=== PATIENT | female | born 1990 | race Caucasian/White ===

== ENCOUNTER → 2024-07-14 06:32 | Day surgery (SDC) | payer OTHER, SELFPAY | LOC: GI 06:32 | PROVIDERS: ATTENDING PHYSICIAN Internal Medicine Gastroenterology | DX: D12.3 Benign neoplasm of transverse colon (principal); K63.89 Other specified diseases of intestine; K62.89 Other specified diseases of anus and rectum; K64.0 First degree hemorrhoids; R19.7 Diarrhea, unspecified | CPT/HCPCS: 45385; 45380; 45381; 88305 ==